=== PATIENT | male | born 1955 | race Caucasian/White ===

== ENCOUNTER 2021-01-09 02:18 | Day surgery (SDC) | payer MEDICARE, SELFPAY ==
[2020-12-30 08:49] VITALS: BMI 34.4
--- NOTE | 2021-01-09 10:07 | WPDANESEPPF ---
Anes - Initial Pre Proc Eval Procedure: Operation Date: 01/09/21 11:30 Proposed Procedures p Screening Colonoscopy - Degn Alvarez MD Date/Time: 01/09/21 10:07 Surgeon: Deng Alvarez MD Pre Op Diagnosis: neoplasm screening Patient Data Age: 65 Gender: M Height: 1.83 m Weight: 115 kg Allergies Allergy/AdvReac Type Severity Reaction Status Date / Time No Known Allergies Verified 01/09/21 11:00 Home Medications Medication Instructions Recorded Confirmed Type atorvastatin 40 mg tablet 40 mg PO DAILY 12/21/19 12/30/20 History finasteride 5 mg tablet 5 mg PO DAILY 06/12/20 12/30/20 History magnesium oxide 400 mg (241.3 mg 400 mg PO DAILY 06/12/20 12/30/20 History magnesium) tablet metoprolol tartrate 50 mg tablet 50 mg PO Q12H #180 tablet 06/18/20 12/30/20 Rx apixaban 5 mg tablet 5 mg PO BID #180 tablet 08/22/20 12/30/20 Rx mecobalamin (vitamin B12) 1,000 mcg PO DAILY 12/30/20 12/30/20 History Patient hx anesthesia problems: none Family hx anesthesia problems: none PMFSH Past Medical History Medical History Anticoagulation adequate Arthritis BMI 34.0-34.9,adult Colon cancer screening Encounter to establish care GERD (gastroesophageal reflux disease) GERD without esophagitis Heart disease History of atrial fibrillation History of stroke Hx of blood clots Hx of hemorrhoids Hyperlipidemia Hypertension Lumbar back pain with radiculopathy affecting lower extremity Osteoarthritis of knees, bilateral Primary hypertension Prostate cancer screening Spinal stenosis of lumbar region with neurogenic claudication Stroke Surgical History Surgical History History of back surgery 2005 History of cardiac radiofrequency ablation 2018 History of left knee surgery 2009 History of right knee surgery 1983 1984 History of surgery on arm right arm 1991 Hx of cataract surgery Family History Family History Mother Respiratory failure Heart disease Father Diabetes mellitus Heart disease Grandparent Heart disease Grandparent Heart disease Sibling Suicide Social History Social History Years smoked: 40 Smoking status: Former smoker Tobacco type: cigarettes Alcohol intake: current Drinks per week: 1 Substance use: never Living arrangements: with family Spiritual care concerns: No Anes - Eval Final PreProcedure Day of Procedure 01/09/21 10:07 Patient weight: obese Heart: regular rate and rhythm Lungs: clear to auscultation and normal air movement Airway: Mallampati scale class II Neurological: alert and oriented Last oral intake: >/= 8 hours ASA classification: III Emergent: no Anesthetic plan: proceed Anesthesia type and monitoring: general GIVS Informed Consent: The patient's anesthetic plan and its attendant risks and benefits were discussed with the patient/family/POA. Questions were solicited and answers provided to the satisfaction of the patient/family/POA.
[2021-01-09 11:02] VITALS: BP 134/96; PULSE 74; RESP 18; TEMP 36.4; O2SAT 96; BMI 33.9
[2021-01-09] MEDS: LACTATED RINGERS 1,000 ML 150 ML IV CONT (11:12)
--- NOTE | 2021-01-09 11:24 | PM.HPGS ---
History of Present Illness History of Present Illness Consent: Risks, benefits, and alternatives have been discussed and questions answered. Patient agrees to proceed with procedure. Chief complaint: neoplasm screening Narrative: German Mancia is a 65 year old male Referred for colon cancer screening. His last colonoscopy was 10 years ago Review of Systems Review of Systems: All systems reviewed & are unremarkable except as noted in HPI and below PMFSH Past Medical History Medical History Anticoagulation adequate Arthritis BMI 34.0-34.9,adult Colon cancer screening Encounter to establish care GERD (gastroesophageal reflux disease) GERD without esophagitis Heart disease History of atrial fibrillation History of stroke Hx of blood clots Hx of hemorrhoids Hyperlipidemia Hypertension Lumbar back pain with radiculopathy affecting lower extremity Osteoarthritis of knees, bilateral Primary hypertension Prostate cancer screening Spinal stenosis of lumbar region with neurogenic claudication Stroke Surgical History Surgical History History of back surgery 2005 History of cardiac radiofrequency ablation 2018 History of left knee surgery 2009 History of right knee surgery 1983 1984 History of surgery on arm right arm 1991 Hx of cataract surgery Family History Family History Mother Respiratory failure Heart disease Father Diabetes mellitus Heart disease Grandparent Heart disease Grandparent Heart disease Sibling Suicide Social History Social History Years smoked: 40 Smoking status: Former smoker Tobacco type: cigarettes Alcohol intake: current Drinks per week: 1 Substance use: never Living arrangements: with family Spiritual care concerns: No Meds Home Medications and Allergies Home Medications Medication Instructions Recorded Confirmed Type atorvastatin 40 mg tablet 40 mg PO DAILY 12/21/19 12/30/20 History finasteride 5 mg tablet 5 mg PO DAILY 06/12/20 12/30/20 History magnesium oxide 400 mg (241.3 mg 400 mg PO DAILY 06/12/20 12/30/20 History magnesium) tablet metoprolol tartrate 50 mg tablet 50 mg PO Q12H #180 tablet 06/18/20 12/30/20 Rx apixaban 5 mg tablet 5 mg PO BID #180 tablet 08/22/20 12/30/20 Rx mecobalamin (vitamin B12) 1,000 mcg PO DAILY 12/30/20 12/30/20 History Allergies Allergy/AdvReac Type Severity Reaction Status Date / Time No Known Allergies Verified 01/09/21 11:00 Vital Signs Vital Signs - 24 hr 01/09/21 11:02 Temperature 36.4 C L Pulse Rate 74 Respiratory Rate 18 Blood Pressure 134/96 H Pulse Oximetry 96 Exam Resp: Auscultation: clear to auscultation bilaterally Cardio: Rate: regular rate Rhythm: regular rhythm GI: GI Palp: Yes Soft to palpation and No Tenderness to palpation present (GI) Assessment and Plan Assessment and plan (1) Colon cancer screening: Code(s): Z12.11 - Encounter for screening for malignant neoplasm of colon Status: Acute
[2021-01-09 11:59] VITALS: BP 125/70; PULSE 63; RESP 22; O2SAT 94
[2021-01-09 12:09] VITALS: BP 116/79; PULSE 64; RESP 21; O2SAT 97
[2021-01-09 12:19] VITALS: BP 130/87; PULSE 62; RESP 18; O2SAT 97
== END 2021-01-09 12:30 | disposition home or self-care (01) ==
PROVIDERS: PCP Physician Assistant; Visit Provider Internal Medicine Gastroenterology
PROC: 0DJD8ZZ Inspection of Lower Intestinal Tract, Via Natural or Artificial Opening Endoscopic (ICD-10-PCS; CPT 45378; principal; 2021-01-09 11:30)
DX: Z12.11 Encounter for screening for malignant neoplasm of colon (principal); K57.30 Diverticulosis of large intestine without perforation or abscess without bleeding; I11.9 Hypertensive heart disease without heart failure; I48.91 Unspecified atrial fibrillation; Z98.1 Arthrodesis status; E78.5 Hyperlipidemia, unspecified; Z87.891 Personal history of nicotine dependence; R00.1 Bradycardia, unspecified; I63.9 Cerebral infarction, unspecified; K21.9 Gastro-esophageal reflux disease without esophagitis; M48.061 Spinal stenosis, lumbar region without neurogenic claudication; Z79.01 Long term (current) use of anticoagulants; E66.9 Obesity, unspecified; Z68.33 Body mass index [BMI] 33.0-33.9, adult; I34.0 Nonrheumatic mitral (valve) insufficiency
CPT/HCPCS: G0121; J2001; J2704; J7120

== ENCOUNTER 2021-07-10 10:47 | Outpatient (CLI) | payer MEDICARE, SELFPAY ==
--- NOTE | ~2021-07-10 | XR_ITS ---
XR hand LT min 3V DATE: 07/10/2021 11:09 INDICATION: Fell on ice yesterday. Left wrist and hand pain TECHNIQUE: 3 views COMPARISON: None FINDINGS: Plate and screws are noted along the distal ulnar shaft. There is osteophyte is at the first carpometacarpal joint and some interphalangeal joints. Subtle virtually nondisplaced distal radial cortical fracture is demonstrated to better advantage on the wrist radiographs today. No other fracture or dislocation is evident. IMPRESSION: Virtually nondisplaced dorsal distal radial cortical fracture Osteoarthritis Reviewed, dictated and finalized at location B. DING DEVICE OPERATOR
--- NOTE | ~2021-07-10 | XR_ITS ---
XR wrist LT min 3V DATE: 07/10/2021 11:09 INDICATION: Fall on ice yesterday. Left wrist and hand pain TECHNIQUE: 5 views COMPARISON: None FINDINGS: There is a plate and screws along the distal ulnar shaft. Normal alignment at the wrist joint. There is a virtually nondisplaced dorsal distal radial intra-articular cortical fracture. There is osteoarthritis at the first carpometacarpal joint. IMPRESSION: Dorsal distal radial virtually nondisplaced intra-articular cortical fracture Reviewed, dictated and finalized at location B. ER WORKER HELPER IMPRESSION: Dorsal distal radial virtually nondisplaced intra-articular cortica l fracture
== END 2021-07-10 10:48 | disposition home or self-care (01) ==
PROVIDERS: PCP Family Medicine; Visit Provider Family Medicine
DX: M79.642 Pain in left hand (principal); M25.532 Pain in left wrist; S52.592A Other fractures of lower end of left radius, initial encounter for closed fracture; M19.042 Primary osteoarthritis, left hand
CPT/HCPCS: 73110; 73130

== ENCOUNTER → 2022-02-24 10:48 | Outpatient (CLI) | payer MEDICARE, SELFPAY ==
--- NOTE | ~2022-02-24 | US_ITS ---
EXAMINATION: US carotid duplex BI DATE: 02/24/2022 11:14 INDICATION: Transient ischemic attack TECHNIQUE: Grayscale, color Doppler, and pulsed Doppler images of the cervical carotid arteries were obtained. The degree of vessel stenosis is placed in one of the following categories: normal, <50%, 5 0-69%, >=70% but less than near-occlusion, near-occlusion, or total occlusion. Note that percent sten osis relative to normal distal artery lumen diameter is indirectly measured from velocity measurement s as described by Man, et al. Radiology 2003; 229:340-346. COMPARISON: None. FINDINGS: RIGHT: The right common carotid artery (CCA) peak systolic velocity (PSV) is 87.5 cm/s. The right internal c arotid artery (ICA) PSV is 82.1 cm/s. The right ICA end-diastolic velocity (EDV) is 19.5 cm/s. The ri ght ICA/CCA PSV ratio is 0.9. Grayscale and color Doppler images yield an estimate of less than 50% d iameter reduction from plaque in the ICA. The external carotid artery (ECA) PSV is 80.9 cm/s. There i s antegrade flow in the right vertebral artery. LEFT: The left CCA PSV is 93.0 cm/s. The left ICA PSV is 82.1 cm/s. The left ICA EDV is 28.1 cm/s. The left ICA/CCA PSV ratio is 0.9. Grayscale and color Doppler images yield an estimate of less than 50% diam eter reduction from plaque in the ICA. The ECA PSV is 98.4 cm/s. There is antegrade flow in the left vertebral artery. IMPRESSION: 1. Less than 50% stenosis in the right internal carotid artery. 2. Less than 50% stenosis in the left internal carotid artery. Reviewed, dictated and finalized at Location A. Reviewed, dictated and finalized at location B.
== END ==
PROVIDERS: PCP Physician Assistant; Visit Provider Physician Assistant
DX: I65.23 Occlusion and stenosis of bilateral carotid arteries (principal)
CPT/HCPCS: 93880

== ENCOUNTER → 2022-03-04 09:22 | Outpatient (CLI) | payer MEDICARE, SELFPAY ==
--- NOTE | ~2022-03-04 | MR_ITS ---
EXAMINATION: MR brain/brain stem wo con DATE: 03/04/2022 10:01 INDICATION: Transient ischemic attack. TECHNIQUE: Magnetic resonance imaging (MRI) of the brain and brainstem was performed without intraven ous contrast. COMPARISON: None. FINDINGS: There are scattered areas of nonspecific increased T2-weighted signal intensity in the cere bral white matter, which is within normal limits for the patient's age. There is no intracranial hemo rrhage, acute infarction, or abnormal intracranial mass lesion. The ventricles are normal in size. Th e paranasal sinuses are clear. There are likely changes of ocular lens replacement surgeries. The mas toid air cells are normal. IMPRESSION: 1. Normal brain. Reviewed, dictated and finalized at location A. IMPRESSION: 1. Normal brain.
== END ==
PROVIDERS: PCP Physician Assistant; Visit Provider Physician Assistant
DX: Z86.73 Personal history of transient ischemic attack (TIA), and cerebral infarction without residual deficits (principal)
CPT/HCPCS: 70551

== ENCOUNTER 2022-04-07 10:03 | Outpatient (CLI) | payer MEDICARE, SELFPAY | END 2022-04-07 10:04 | disposition home or self-care (01) | LOC: ANHSURGERY 10:07 | PROVIDERS: PCP Physician Assistant; Visit Provider Urology | DX: Z01.818 Encounter for other preprocedural examination (principal); I10 Essential (primary) hypertension | CPT/HCPCS: 87086 ==

== ENCOUNTER 2022-04-13 01:17 | Day surgery (SDC) | payer MEDICARE, SELFPAY ==
[2022-03-31 14:34] VITALS: BMI 34.4
--- NOTE | 2022-03-31 15:05 | PC.NURSE ---
Report to the Outpatient Waiting Room, entrance under the green pavilion located off [facility], at time __6:30AM on date __04/13/22 . Planned Procedure Time: _8:30AM . Time changes happen often and if your time is changed the preop area will call you the afternoon before. - You and your visitor will be asked to self-screen and do not enter if you have any COVID symptoms. - We encourage only one visitor and NO visitors under age 16 are allowed at this time. Your visitor will receive communication by the phone number that is given day of service. - The patient visitor is requested to social distance or may leave the building when not with patient due to restrictions. - A mask is required within the hospital. Patients may have clear liquids (water, carbonated beverages, clear teas, apple juice) until 3 hours prior to surgery with a maximum of 20 ounces. - No food from midnight until time of surgery Take the following medications with a SIP of water the morning of surgery: ___METOPROLOL_(PT TAKES AMLODIPINE IN THE AFTERNOON) Medications to discontinue per physician __HOLD ELIQUIS 2 DAYS PRE-OP PER DR HENDRICKSON- LAST DOSE 04/10/22, HOLD ALL VITAMINS/SUPPLEMENTS- 7 DAYS PRE-OP PER DR HENDRICKSON- LAST DOSE 04/06/22 Please no make-up, nail uzbek, hairspray, perfume, deodorant, or body powder the day of surgery. No jewelry (including any body piercings) or valuables the day of surgery, leave them at home. Please take a shower or bath the night before, or the morning of, surgery with an antibacterial soap. Wear comfortable, loose fitting clothing. Children are encouraged to wear pajamas. - Jewelry must be removed prior to entering the operating room. Rings and piercings that are not removed may be cut off. - The hospital will not accept responsibility for valuables. - Please leave all valuables, including medications, at home the day of surgery. If you are going home after surgery, a licensed driver material handler must drive you home. - NO public transportation without another adult. - We recommend that an adult stay with you for 24 hours following discharge. - We also recommend that you do not drive, make important decision, drink alcoholic beverages, or take any drugs that were not prescribed by your health care provider for at least 24 hours after your discharge time. Follow any additional instructions given to you from your surgeon. If you or anyone in your household have experienced Covid symptoms in the past week, please notify your surgeon or the nurse liaison at the phone number below for possible testing. Telephone instructions given to __PATIENT and asked if any additional questions and then verbalized understanding. Patient advised to call surgeon office or pre surgery nurse liaison [phone] if any additional questions.
[2022-04-13 07:29] VITALS: BP 136/93; PULSE 62; RESP 14; TEMP 36.4; O2SAT 100
[2022-04-13] MEDS: LACTATED RINGERS 1,000 ML 30 ML IV CONT (07:33)
--- NOTE | 2022-04-13 07:45 | WPDANESEPPF ---
Anes - Initial Pre Proc Eval Procedure: Operation Date: 04/13/22 08:30 Proposed Procedures p Urolift - Donald French MD Date/Time: 04/13/22 07:45 Surgeon: Donald French MD Pre Op Diagnosis: BPH Patient Data Age: 66 Gender: M Height: 1.83 m Weight: 116.7 kg Last Vital Signs Temp 36.4 C L 04/13/22 07:29 Pulse 62 04/13/22 07:29 Resp 14 04/13/22 07:29 BP 136/93 H 04/13/22 07:29 Pulse Ox 100 04/13/22 07:29 O2 Del Method Room Air 04/13/22 07:29 Allergies Allergy/AdvReac Type Severity Reaction Status Date / Time lisinopril AdvReac Intermediate Cough Verified 04/13/22 07:34 Home Medications Medication Instructions Recorded Confirmed Type finasteride 5 mg tablet 5 mg PO DAILY 06/12/20 03/31/22 History metoprolol tartrate 50 mg tablet 50 mg PO Q12H #180 tabs 07/06/21 04/13/22 Rx apixaban 5 mg tablet (Eliquis) 5 mg PO BID #180 tabs 11/05/21 03/31/22 Rx mecobalamin (vitamin B12) 1,000 500 mcg PO DAILY 11/10/21 03/31/22 History mcg chewable tablet atorvastatin 40 mg tablet 40 mg PO DAILY #90 tabs 03/07/22 03/31/22 Rx amlodipine 2.5 mg tablet 2.5 mg PO DAILY #30 tabs 03/15/22 03/31/22 Rx Patient hx anesthesia problems: none Family hx anesthesia problems: none Results Review: All pre-operative results and documents have been reviewed as part of the pre-operative evaluation. FORMERLY [facility] Past Medical History Medical History Anticoagulation adequate Arthritis BMI 34.0-34.9,adult Colon cancer screening Elevated TSH Encounter to establish care GERD (gastroesophageal reflux disease) GERD without esophagitis Heart disease History of atrial fibrillation History of stroke Hx of blood clots Hx of hemorrhoids Hyperlipidemia Hypertension Lumbar back pain with radiculopathy affecting lower extremity Osteoarthritis of knees, bilateral Primary hypertension Prostate cancer screening Spinal stenosis of lumbar region with neurogenic claudication Stroke Surgical History Surgical History History of back surgery 2005 History of cardiac radiofrequency ablation 2019 History of left knee surgery 2009 History of right knee surgery 1983 1984 History of surgery on arm right arm 1991 Hx of cataract surgery Family History Family History Mother Respiratory failure Heart disease Father Diabetes mellitus Heart disease Grandparent Heart disease Grandparent Heart disease Sibling Suicide Social History Social History (Updated 04/13/22 @ 07:45 by Laci Samano MD) Smoking packs per day: 0.2 Smoking cigarettes per day: 4.0 Years smoked: 40 Smoking pack-years: 8.00 Smoking status: Former smoker Tobacco type: cigarettes Smoking end date: 06/06/17 Alcohol intake: current Drinks per week: 1 Substance use: never Substance use type: does not use Living arrangements: with family Additional living arrangements comments: Spiritual care concerns: No Anes - Eval Final PreProcedure Day of Procedure 04/13/22 07:45 Patient weight: obese Heart: regular rate and rhythm Lungs: clear to auscultation Airway: Mallampati scale class II Neurological: alert and oriented Last oral intake: >/= 8 hours ASA classification: III Emergent: no Anesthesia type and monitoring: general GIVS and standard monitoring Results Review: All pre-operative results and documents have been reviewed as part of the pre-operative evaluation. Informed Consent: The patient's anesthetic plan and its attendant risks and benefits were discussed with the patient/family/POA. Questions were solicited and answers provided to the satisfaction of the patient/family/POA.
--- NOTE | 2022-04-13 08:06 | WPDHPUPDATE1 ---
History and Physical Update Update Date/Time: 04/13/22 08:06 History and Physical has been reviewed, including an updated exam of the patient. There are NO changes in the patient's condition. Risks, benefits, and alternatives have been discussed and questions answered. Patient agrees to proceed with procedure. Proceed with urolift
[2022-04-13] MEDS: ceFAZolin 2 GM/D5W 50 ML 2 GM/50 ML BAG IVPB (08:12)
[2022-04-13] MEDS: LIDOCAINE HCL 2% GEL UROJET 10 ML PKG MUCOUS MEM (08:23)
--- NOTE | 2022-04-13 08:41 | W.PM.PROC2 ---
Procedure Note - Detailed Date of Procedure 04/13/22 Pre-op Diagnosis BPH Post-op Diagnosis Same Procedure Performed Uro lift with 6 francia Surgeon Donald French MD Anesthesia General Description of Procedure Patient is taken the operative suite correctly identified. Once anesthesia was obtained was placed in dorsal lithotomy position prepped draped usual sterile fashion. The UroLift scope was inserted into the bladder direct vision there were no tumors noted. We started by placing a staple 2.5 cm proximal to the bladder neck on the patient's left side. This was placed without difficulty. Similar stable was then placed on the opposite side. The 3rd and 4th francia were then placed near the level of the verumontanum on each side. After termination it was noted that we would stack them at this level. A 15 6 stable were then placed more inferiorly at the level of the verumontanum. There appeared to be an open anterior channel at this point. Patient had some mild oozing. 2% viscous lidocaine was inserted urethra and a 16 [place] Blancas was placed with 10 cc in the balloon. He is taken recovery stable condition. If his urine clears this Blancas will be removed. If he remains somewhat pinkish or bloody then we will send him home with a catheter for a day or 2. Drains Yes Packing No Pathology None sent Complications No immediate complications Condition Stable Disposition PACU
[2022-04-13 08:45] VITALS: BP 116/70; PULSE 64; RESP 22; O2SAT 97
[2022-04-13 09:15] VITALS: BP 117/60; PULSE 44; RESP 20
[2022-04-13 09:45] VITALS: BP 130/74; PULSE 56; RESP 20
== END 2022-04-13 10:00 | disposition home or self-care (01) ==
PROVIDERS: PCP Physician Assistant; Visit Provider Urology
PROC: 0T7D8DZ Dilation of Urethra with Intraluminal Device, Via Natural or Artificial Opening Endoscopic (ICD-10-PCS; CPT 52441; principal; 2022-04-13 08:30)
DX: N40.1 Benign prostatic hyperplasia with lower urinary tract symptoms (principal); R33.8 Other retention of urine; I11.9 Hypertensive heart disease without heart failure; K21.9 Gastro-esophageal reflux disease without esophagitis; E78.5 Hyperlipidemia, unspecified; Z86.718 Personal history of other venous thrombosis and embolism; Z86.73 Personal history of transient ischemic attack (TIA), and cerebral infarction without residual deficits; Z87.891 Personal history of nicotine dependence; E66.9 Obesity, unspecified; Z68.34 Body mass index [BMI] 34.0-34.9, adult; Z79.01 Long term (current) use of anticoagulants
CPT/HCPCS: C9740; 87086; A9270; J0690; J2704; J7120; L8699

== ENCOUNTER 2022-04-13 12:51 | Emergency (ER) | payer MEDICARE, SELFPAY ==
[2022-04-13 12:54] VITALS: BP 159/107; PULSE 65; RESP 18; TEMP 36.7; O2SAT 99
--- NOTE | 2022-04-13 14:13 | ED.GENADULT ---
HPI - General Adult General Chief complaint: Urogenital-Male Stated complaint: bleeding around catheter Time Seen by Provider: 04/13/22 13:51 Source: patient Mode of arrival: ambulatory Limitations: no limitations History of Present Illness HPI narrative: Patient had UroLift at [address] French, at 10 PM went home and noticed that he gets urge to urinate and urine coming out of the catheter around his penis. Patient was told by Dr. French office to go to the emergency room. The Blancas catheter was irrigated, still fluid coming out of the catheter at the penis exit, the catheter was changed, with good result. Urine output to the bag, patient feeling much better no urine leaking around the catheter. Related Data Home Medications Medication Instructions Recorded Confirmed finasteride 5 mg tablet 5 mg PO DAILY 06/12/20 03/31/22 mecobalamin (vitamin B12) 1,000 500 mcg PO DAILY 11/10/21 03/31/22 mcg chewable tablet Allergies Allergy/AdvReac Type Severity Reaction Status Date / Time lisinopril AdvReac Intermediate Cough Verified 04/13/22 07:34 Review of Systems Review of Systems: All systems reviewed & are unremarkable except as noted in HPI and below PMFSH Past Medical History Medical History Anticoagulation adequate Arthritis BMI 34.0-34.9,adult Colon cancer screening Elevated TSH Encounter to establish care GERD (gastroesophageal reflux disease) GERD without esophagitis Heart disease History of atrial fibrillation History of stroke Hx of blood clots Hx of hemorrhoids Hyperlipidemia Hypertension Lumbar back pain with radiculopathy affecting lower extremity Osteoarthritis of knees, bilateral Primary hypertension Prostate cancer screening Spinal stenosis of lumbar region with neurogenic claudication Stroke Surgical History Surgical History History of back surgery 2005 History of cardiac radiofrequency ablation 2019 History of left knee surgery 2009 History of right knee surgery 1983 1984 History of surgery on arm right arm 1991 Hx of cataract surgery Family History Family History Mother Respiratory failure Heart disease Father Diabetes mellitus Heart disease Grandparent Heart disease Grandparent Heart disease Sibling Suicide Social History Social History Smoking packs per day: 0.2 Smoking cigarettes per day: 4.0 Years smoked: 40 Smoking pack-years: 8.00 Smoking status: Former smoker Tobacco type: cigarettes Smoking end date: 06/06/17 Alcohol intake: current Drinks per week: 1 Substance use: never Substance use type: does not use Additional living arrangements comments: Spiritual care concerns: No Exam Narrative: General appearance: Well-developed, well-nourished Skin: Normal color Head: Normocephalic, nontraumatic Eyes: Clear conjunctiva ENT: Oropharynx normal, ears normal, nose normal Neck: Supple, nontender Chest and respiratory: Airway patent, no respiratory distress, no accessory muscle use Heart: Regular rate/rhythm Abdomen: Soft, nontender, no organomegaly, quiet bowel sounds, bloody urine leaking around the Blancas catheter exit Vascular: Normal peripheral pulses, normal capillary refill. Musculoskeletal: Normal range of motion, nontender back Neurologic: Alert and oriented ?3, BUSINESS REPORTER is normal as tested, no gross motor deficit Course Consultations Consultation #1: Dr. French Date:
[2022-04-13 16:20] VITALS: BP 138/80; PULSE 80; RESP 16; TEMP 36.8; O2SAT 100
--- NOTE | 2022-04-13 23:53 | PC.NURSE ---
Current ochoa not draining and pt having spasms and urine noted come out around catheter. 10 ml removed from 16 fr cath and catheter removed without problems. Large clot noted at end of 16fr ochoa 18fr ochoa inserted and instilled 5ml in balloon per instructions. Ochoa then irrigated with 60ml of normal saline and the 60 ml then removed with piston syringe. New catheter patent and draining red drainage. Catheter continued to drain with incident.
== END 2022-04-13 16:20 | disposition home or self-care (01) ==
PROVIDERS: Emergency Provider Emergency Medicine; PCP Urology
DX: R31.9 Hematuria, unspecified (principal); T83.091A Other mechanical complication of indwelling urethral catheter, initial encounter; Z87.891 Personal history of nicotine dependence; M19.90 Unspecified osteoarthritis, unspecified site; K21.9 Gastro-esophageal reflux disease without esophagitis; I10 Essential (primary) hypertension; E78.5 Hyperlipidemia, unspecified
CPT/HCPCS: 51702; 87086; 99283; A9270; J0690; J2704; J7120; L8699

== ENCOUNTER → 2022-11-19 09:35 | Outpatient (CLI) | payer MEDICARE, SELFPAY ==
--- NOTE | ~2022-11-19 | XR_ITS ---
EXAMINATION: XR chest 2V 11/19/2022 09:43 INDICATION: Dyspnea PROCEDURE: 2 view chest COMPARISON: No prior studies for comparison. FINDINGS: The lungs are clear. The cardiomediastinal silhouette is within normal limits. There are no pleural effusions. There is no pneumothorax suspected. There is an implantable battery device ov erlying the left anterior thorax. IMPRESSION: 1: NO ACUTE CARDIOPULMONARY DISEASE. Reviewed, dictated and finalized at location []
== END ==
PROVIDERS: PCP Family Medicine; Visit Provider Physician Assistant Medical
DX: R06.00 Dyspnea, unspecified (principal)
CPT/HCPCS: 71046

== ENCOUNTER 2023-04-13 14:58 | Outpatient (CLI) | payer MEDICARE, SELFPAY ==
--- NOTE | ~2023-04-13 | CT_ITS ---
EXAMINATION:CT diagnostic chest wo con DATE: 04/13/2023 15:28 INDICATION: Dyspnea. Chest pain. Cough. TECHNIQUE: Computed tomography (CT) of the chest was performed without intravenous contrast. Automate d exposure control and iterative reconstruction technique were employed. The dose-length product (DLP ) was 565.49 mGy-cm. COMPARISON: Chest 2 views 11/19/2022 FINDINGS: There is mild atelectasis bilaterally. Calcified right lung nodules and calcified right hil ar and mediastinal lymph nodes are consistent with old granulomatous disease. No pleural effusion. Th e heart size is normal. There are coronary artery calcifications. No pericardial effusion. There is a n electronic implant in anterior left chest wall. There is a 14 mm cyst in the liver. Calcifications in the spleen are consistent with old granulomatous disease. There is bilateral gynecomastia. There i s mild thoracic spondylosis. IMPRESSION: 1. No etiology for the patient's symptoms. Reviewed, dictated and finalized at location E. NESS OFFICE TECHNOLOGY INSTRUCTOR
== END 2023-04-13 14:59 | disposition home or self-care (01) ==
PROVIDERS: PCP Family Medicine; Visit Provider Nurse Practitioner Family
DX: R06.00 Dyspnea, unspecified (principal); R05.3 Chronic cough; R07.89 Other chest pain
CPT/HCPCS: 71250

== ENCOUNTER 2024-07-03 09:04 | Outpatient (CLI) | payer MEDICARE, SELFPAY ==
--- NOTE | ~2024-07-03 | US_ITS ---
Ultrasound of the Abdominal Aorta INDICATION: Nicotine dependence, aneurysm screening TECHNIQUE: Grayscale, color Doppler, and pulsed Doppler images of the aorta and common iliac arteries were obtained. COMPARISON: None. FINDINGS: Maximum vascular dimensions are as follows: Proximal aorta: 2.3 cm Mid aorta: 2.1 cm Distal aorta: 1.9 cm Right common iliac artery: 1.3 cm Left common iliac artery: 1.6 cm There is no evidence of abdominal aortic aneurysm. No para-aortic mass lesion or fluid collection see n. IMPRESSION: No evidence of abdominal aortic aneurysm. Reviewed, dictated and finalized at location . EXPERIENCE COORDINATOR
== END 2024-07-03 09:05 | disposition home or self-care (01) ==
LOC: MICIMG 09:05
PROVIDERS: PCP Family Medicine; Visit Provider Student in an Organized Health Care Education/Training Program
DX: Z87.891 Personal history of nicotine dependence (principal)
CPT/HCPCS: 76706

== ENCOUNTER 2025-02-19 08:26 | Outpatient (CLI) | payer MEDICARE, SELFPAY ==
--- NOTE | ~2025-02-19 | NM_ITS ---
EXAMINATION: NM daiana stress w perfusion DATE: 02/19/2025 11:18 INDICATION: Chest pain. TECHNIQUE: Rest images were obtained following intravenous administration of 11.8 mCi Tc99m tetrofosmin (Myoview). The patient was infused intravenously with Lexiscan (regadenoson). Then, 34.5 mCi Tc99m tetrofosmin (Myoview) was administered intravenously, and stress images were obtained. Data was tamar nstructed into short axis and horizontal and vertical long axis SPECT images. Gated SPECT images were also obtained. COMPARISON: None. FINDINGS: There is no definite reversible or fixed perfusion abnormality to suggest ischemia or infarction. There is no segmental wall motion abnormality. Left ventricular ejection fraction measures >70%. IMPRESSION: 1. No definite ischemia or infarct. 2. Normal left ventricular ejection fraction measuring >70%. Reviewed, dictated and finalized at location E.
--- NOTE | 2025-02-19 08:37 | EST_ITS ---
Patient Info Name: German Mancia Age: 69 years : 1955 Gender: Male Ht: 72 in Wt: 260 lbs BSA: 2.49 m2 HR: 57 bpm BP: 140 / 82 mmHg Exam Date: 02/19/2025 8:37 AM Patient Status: O Admit Date: 02/19/2025 Exam Type: CA stress daiana w NM A regadenoson stress test was performed. Staff Referring Physician: Nikita Powers DO Attending Provider: Nikita Powers DO Exercise Technologist: Aby Nicole Exercise Physician: Nikita Powers DO Summary 1. 1. Negative lexiscan stress test for ischemic ST changes by ECG criteria. 2. 2. Baseline hypertension. 3. 3. Nuclear scan to follow and will be reported separately. Please correlate with it. 4. 4. Patient informed of the above results. Protocol: Lexiscan Stress ECG Details Stage: REST Duration (min): 1 min : 11 sec HR (bpm): 56 SBP (mmHg): 140 DBP (mmHg): 82 Stage: REST Duration (min): 7 min : 26 sec HR (bpm): 60 SBP (mmHg): 140 DBP (mmHg): 82 Stage: STAGE 1 Duration (min): 0 min : 59 sec HR (bpm): 77 SBP (mmHg): 154 DBP (mmHg): 81 Stage: RECOVERY Duration (min): 1 min : 0 sec HR (bpm): 85 SBP (mmHg): 154 DBP (mmHg): 81 Stage: RECOVERY Duration (min): 2 min : 0 sec HR (bpm): 84 SBP (mmHg): 154 DBP (mmHg): 81 Stage: RECOVERY Duration (min): 3 min : 0 sec HR (bpm): 83 SBP (mmHg): 137 DBP (mmHg): 82 Stage: RECOVERY Duration (min): 3 min : 15 sec HR (bpm): 82 SBP (mmHg): 137 DBP (mmHg): 82 Rest HR: 60 bpm Peak HR: 85 bpm Rest Sys BP: 140 mmHg Peak Sys BP: 154 mmHg Max Pred HR: 151 bpm % Max Pred HR: 56 % Target HR: 128 bpm Max RPP: 13,090 bpm*mmHg Termination Reason: Completed protocol Cardiac Symptoms: Shortness of breath Total Time: 1 min : 0 sec Rest Kaminski BP: 82 mmHg Peak Kaminski BP: 81 mmHg Total Dose: 0.4 mg Resting ECG Sinus rhythm. Stress ECG No ST changes. Arrhythmias None. Report Signatures
--- OUTSIDE RECORDS SUMMARY | 2025-02-19 09:18 | XMS_ITS | Encounter Summary ---
Author Organization [facility] Address [address] [place] [address] Care Team Providers Care Offal Baler Name Role Phone Lauri Ronquillo MD Primary Care Provider + [phone] Lauri Ronquillo MD Primary Care Provider [phone] Ruma Nunez Primary Care Provider [phone] Sj Singleton MD Unavailable [phone] Encounter Details Date Type Department Care Team (Late st Contact Info) Description 02/05/2020 Telephone [facility] - Imaging [address] [place] [address] Transcribed Order, Provider Social History Tobacco Use Types Packs/Day Years Used Date Smoking Tobacco: Former Smokeless Tobacco: Never Alcohol Use Standard Drinks/Week Comments Yes 0 (1 standard drink = 0.6 oz pur e alcohol) PHQ-2 Answer Date Recorded PHQ-2 Total Score (If total score is 3 or more points, staff should administer the PHQ-9) 2 01/17/2020 Sex and Gender Information Value Date Recorded Sex Assigned at Not on file Legal Sex Male 8:53 PM NANOTECHNOLOGY ENGINEERING TECHNOLOGIST Gender Identity Not on file Sexual Orientation Straight 02/12/2020 10 :39 AM CDT Occupation Industry Job Start Date Job End Date Retired Not on file Not on file Not on file documented as of this encounter Plan of Treatment Not on file documented as of this encounter Visit Diagnoses Not on filedocumented in this encounter Care Teams Offal Baler Relationship Specialty Start Date End Date Lauri Ronquillo MD PCP - General Internal Medicine 12/03/19 03/02/20 Lauri Ronquillo MD PCP - General 03/03/20 07/27/23 Ruma Nunez PA [address] [place] [address] PCP - General Family Medicine 07/28/23 Sj Singleton MD [address] [place] [address] Consulting Physician Interventional Cardiology 08/03/23 documented as of this encounter
--- OUTSIDE RECORDS SUMMARY | 2025-02-19 09:18 | XMS_ITS | Clinical Summary ---
Author Organization [facility] Address [address] [place] [address] Care Team Providers Care House Rn Name Role Phone Ruma Nunez Primary Care Provider [phone] Sj Singleton MD Unavailable [phone] Allergies No known active allergies Medications metoprolol XL (TOPROL-XL) 50 mg extended release tablet Take 1 tablet (50 mg total) by mouth 2 (two) times a day Active atorvastatin (LIPITOR) 40 mg tablet Take 1 tablet (40 mg total) by mouth daily Active apixaban (ELIQUIS) 5 mg tablet Take 1 tablet (5 mg total) by mouth 2 (two) times a day 03/10/2020 Active albuterol (PROAIR RESPICLICK) 90 mcg/actuation inhaler Inhale 2 puffs every 6 (six) hours as needed for wheezing Active clopidogreL (PLAVIX) 75 mg tablet Take 1 tablet (75 mg total) by mouth daily 90 tablet 3 08/03/2023 Active Active Problems Problem Noted Date Diagnosed Date Coronary arteriosclerosis 07/28/2023 Chest pain 03/03/2023 Status post lumbar spinal fusion 08/20/2020 Assessment & Plan (08/19/2021 1:36 PM CDT): Mr. Mancia is clinically doing well after posterior lumbar decompression and fusion. He does not have any significant back pain or radicular leg symptoms. He seems to have a solid fusion by x-ray from L4-S1. There is lucency around the bilateral L3 screws and evidence of pseudoarthrosis at that level which is asymptomatic. We discussed symptoms to watch out for. We will not set up a scheduled appointment, but I would be happy to see him back at any point if problems arise. Assessment & Plan (08/20/2020 11:18 AM CDT): Mr. Mancia is status post L3-S1 decompression and fusion. He had entire leg numbness prior to surgery. The numbness is now in the distal ankle and foot anteriorly is likely to improve over time. There is some lucency around the L3 screws but no abnormal movement on dynamic range of motion. It seems that the bone is filling in around the screws. We will follow this over time. Plan to see him back in 1 year with AP and lateral lumbar spine films at that time. Piriformis syndrome of right side 08/20/2020 Assessment & Plan (08/20/2020 11:19 AM CDT): Mr. Mancia has a markedly positive piriformis stretch on the right. I have shown him several piriformis stretches to try out at home to loosen this muscle. Postlaminectomy syndrome, lumbar region 03/12/20 20 Assessment & Plan (04/16/2020 2:08 PM SUPPLIER SPECIALIST): PLAN: - Continue activity restrictions as outlined prior to surgery. - After 6 weeks may start physical therapy/aqua therapy/home exercise program - Continue bone growth stimulator for an additional 2 months. - After 6 weeks, patient may resume NSAIDs, may increase activity as tolerated, wean off brace. WORK STATUS: - RETIRED FOLLOW UP APPT: With Dr. Zafar in 4.5 months with Flexion/Extension Lumbar spine films. Assessment & Plan (03/17/2020 11:14 AM CDT): PLAN: - Continue activity restrictions as outlined prior to surgery. - Continue bone growth stimulator/brace. - Obtain Lumbar AP/LAT Xray today to check for instrumentation placement. - Advised patient the numbness will gradually improve. WORK STATUS: - RETIRED FOLLOW UP APPT: With [facility] April 15, 2020 with AP/LAT Lumbar Spine Xray. Assessment & Plan (03/12/2020 10:01 AM CDT): PLAN: - Continue activity restrictions as outlined prior to surgery. - Renew medications: Ruskin 5/325 1 q 6 hr prn-mailed script to home. - Continue bone growth stimulator/brace. WORK STATUS: - OFF WORK FOLLOW UP APPT: With [facility] on March 17, 2020 for removal of remaining francia. Benign essential hypertension 02/19/2020 Gastroesophageal reflux disease 02/19/2020 Pure hypercholesterolemia 02/19/2020 History of stroke 02/19/2020 Neurogenic claudication due to lumbar spinal wiley nosis 01/28/2020 Overview (01/28/2020): Added automatically from request for surgery [id number] Lumbar stenosis with neurogenic claudication Assessment & Plan (01/17/2020 2:07 PM CDT): Mr. Mancia he has lumbar stenosis with neurogenic claudication. He has some proximal leg weakness associated with this. He also seems to have symptoms in the L5 distribution. He gets severe pain when coughing or sneezing. The pain extends down both legs when this occurs. He is on anti-platelet therapy for atrial fibrillation and prior stroke. We discussed different options including doing the L3-4 level alone or L3-4 and L5-S1. Given the need to stop platelet therapy for surgery, I would recommend doing both levels for a wide decompression at both levels during a single surgery. We will arrange for him to undergo L3-S1 decompression and fusion with revision of prior hardware at L4-5 at our earliest convenience. We will get a CT of the lumbar spine to assess screw placement from the prior surgery and to assess fusion. We will also assess pedicle width at L3 and S1. Atrial fibrillation 02/12/2019 Insomnia 01/29/2017 Arthralgia of hip 09/23/2011 Osteoarthritis Obesity (BMI 35.0-39.9 without comorbidity) Overview (02/19/2020): BMI 37 BPH (benign prostatic hyperplasia) Hearing loss Resolved Problems Problem Noted Date Diagnosed Date Resolved Date History of DVT (deep vein thrombosis) 02/19/2020 02/19/2020 Surgical History Surgery Date Site/Laterality Comments KNEE ARTHROSCOPY Bilateral POSTERIOR FUSION LUMBAR SPINE 10/04/2005 - 11/03/2005 L4-5 WRIST SURGERY GASTRIC BYPASS CLOSED REDUCTION FOREARM FRACTURE CARDIAC ELECTROPHYSIOLOGY MAPPING AND ABLATION 06/06/2018 - 06/05/2019 SPINAL FUSION 03/03/2020 Removal of L4-L5 Hardware, L3-S1 Posterior Spinal Decompression and Fusion-(Dr Zafar) WRIST FRACTURE SURGERY Left CATARACT EXTRACTION 06/06/2020 - 06/05/2021 Medical History Medical History Date Comments Stroke (HCC) Hearing loss GERD (gastroesophageal reflux disease) BPH (benign prostatic hyperplasia) Osteoarthritis Presence of cardiac device LOOP RECORDER Obesity (BMI 35.0-39.9 witho ut comorbidity) BMI 37 Arthralgia of hip 09/23/2011 Lumbar stenosis with neuroge pushpa claudication 01/17/2020 Neurogenic claudication due to lumbar spinal stenosis 01/28/2020 Added automatically from [facility] for surgery [id number] Atrial fibrillation (HCC) 02/12/2019 Benign essential hypertension 02/19/2020 Pure hypercholesterolemia 02/19/2020 Insomnia 01/29/2017 Family History Medical History Relation Name Comments Cancer Father Diabetes Father Hypertension Father Stroke Father Heart disease Mother Hypertension Mother Relation Name Status Comments Father Mother Social History Tobacco Use Types Packs/Day Years Used Date Smoking Tobacco: Former Cigarettes Q uit: 04/04/2015 Smokeless Tobacco: Never Tobacco Cessation:Counseling Given: Not Answered Alcohol Use Standard Drinks/Week Comments Yes 0 (1 standard drink = 0.6 oz pur e alcohol) AUDIT-C Answer Date Recorded Q1: How often do you have a drink containing alc ohol? Monthly or less 03/15/2023 Q2: How many drinks containi ng alcohol do you have on a typical day when you are drinking? 1 or 2 03/15/2023 Q3: How often do you have si x or more drinks on one occasion? Never 03/15/2023 PHQ-2 Answer Date Recorded PHQ-2 Total Score (If total score is 3 or more points, staff should administer the PHQ-9) 2 01/17/2020 Personal Safety Answer Date Recorded Have you ever been in or are you currently in a harmful physical or emotional relationship or is someone making you feel afraid or unsafe? Denies 08/03/2023 Sex and Gender Information Value Date Recorded Sex Assigned at Not on file Legal Sex Male 8:53 PM SUPPLIER SPECIALIST Gender Identity Not on file Sexual Orientation Straight 02/12/2020 10 :39 AM CDT Occupation Industry Job Start Date Job End Date Retired Not on file Not on file Not on file Obstetrics History Last Filed Vital Signs Vital Sign Reading Time Taken Comments Blood Pressure 145/83 08/03/2023 7:15 PM SUPPLIER SPECIALIST Pulse 62 08/03/2023 7:15 PM SUPPLIER SPECIALIST Temperature 36.4 C (97.5 F) 08/03/2023 4:45 PM SUPPLIER SPECIALIST Respiratory Rate 12 08/03/2023 7:15 PM SUPPLIER SPECIALIST Oxygen Saturation 98% 08/03/2023 7:15 PM SUPPLIER SPECIALIST Inhaled Oxygen Concentration - - Weight 119.3 kg (263 lb) 08/03/2023 11:13 AM SUPPLIER SPECIALIST Height 182.9 cm (6') 08/03/2023 11:13 AM SUPPLIER SPECIALIST Body Mass Index 35.67 08/03/2023 11:13 AM SUPPLIER SPECIALIST Plan of Treatment Health Maintenance Due Date Last Done Comments Colon Cancer Screening-Colonoscopy 1955 Hepatitis C Screening 1955 Prostate Cancer Screening-PSA 1955 DTaP/Tdap/Td Vaccine (1 - Tdap) 08/16/1966 Hepatitis B Screening 08/16/1973 Pneumococcal vaccine 65+ (1 of 1 - PCV) 08/16/2005 Zoster Vaccine (1 of 2) 08/16/2005 Abdominal Aortic Aneurysm (A AA) Screen 08/16/2020 Well Visit 65+ 08/16/2020 Depression Screening 01/16/2021 01/17/2020, 01/17/20 20 Fall Risk Assessment 08/03/2024 08/03/2023 Influenza Vaccine (#1) 2025 9, 03/07/2018, 04/06/2017, Additional history exists Medical Devices Implanted Type Area Chorus Master Device Identifier Shelf Expiration Date Model / Serial / Lot Screw And Plate Left: Ulna Description:Patient has scre w and plate after surgery on ulna Flint [id number]-[id number]-105 Inqu Paste Mix Plus Black Oxide Coating Equipment Tender 5cc Bone Graft Hyaluronic Acid Poly - [id number] Implanted:Qty: 1 on 03/03/2020 by Randy Zafar MD at [facility] N/A: Lumbar-Sa cral Spine Flint [id number] 05/17/2021 IQSP-PP-10 [id number] [place] Iqsp-Pp-105 Inqu Paste Mix Plus Black Oxide Coating Equipment Tender 5cc Bone Graft Hyaluronic Acid Poly - [id number] Implanted:Qty: 1 on 03/03/2020 by Randy Zafar MD at [facility] N/A: Lumbar-Sa cral Spine [employer] [id number] 05/17/2021 IQSP-PP-10 5 / / [id number] Integra [employer] Evans Dp-1011 Duragen Plus 1x1in Patch Resorbable Suturable Cranial Dura Graft - [id number] Implanted:Qty: 1 on 03/03/2020 by Randy Zafar MD at [facility] N/A: Lumbar-Sa cral Spine Integra [employer] Evans 10/03/2022 [id number]-[id number] / / [id number] Core Link [id number] Cressey 7mm 40mm Spine Pedicle Screw Bone Nonsterile 5500 Series - [id number] Implanted:Qty: 8 on 03/03/2020 by Randy Zafar MD at [facility] N/A: Lumbar-Sa cral Spine Core Link [id number] / / Core Link [id number] Cressey Screw Set 5500 Series - [id number] Implanted:Qty: 8 on 03/03/2020 by Randy Zafar MD at [facility] N/A: Lumbar-Sa cral Spine Core Link [id number] / / Core Link [id number] Cressey 5.5mm 100mm Line Prebent Hayder Spinal Nonsterile 5500 Series - [id number] Implanted:Qty: 2 on 03/03/2020 by Randy Zafar MD at [facility] N/A: Lumbar-Sa cral Spine Core Link [id number] / / Medtronic Card Vasc Surgery 3.5 X 18mm Roscoe [place] Rx Coronary Stent [id number] - [id number] Implanted:Qty: 1 on 08/03/2023 by Sj Singleton MD at [facility] Medtronic Card Vasc Surgery 06/14/2026 [id number] / / [id number] 2001 Insurance [employer] MEDICARE [employer] Advance Directives For more information, please contact: [phone] * Full Code (Latest Code Status on File) Date Activated Date Inactivated Comments 03/03/2020 6:25 PM 03/05/2020 6:33 PM Care Teams House Rn Relationship Specialty Start Date End Date Ruma Nunez PA [address] [place] [address] PCP - General Family Medicine 07/28/23 Sj Singleton MD [address] [place] [address] Consulting Physician Interventional Cardiology 08/03/23
--- OUTSIDE RECORDS SUMMARY | 2025-02-19 09:18 | XMS_ITS | Clinical Summary ---
Author Organization [facility] Address [address] [place] [address] Care Team Providers Care Electrostatic Painter Name Role Phone Lauri Ronquillo MD Primary Care Provider [phone] Source Comments [facility],non-owned Affiliates and Associated Physician Practices is amultiple site organization consisting of ambulatory clinics and hospital sitesin [place], [place], [place] and [place]. This disclosure is being madepursuant to the Care Everywhere program and may not contain all information available regarding this patient. Last updated 18.[facility] Allergies No known active allergies Medications * Be aware that medications may not be up to date on this document. Alwaysverify current medications with the patient. apixaban (ELIQUIS) 5 MG tablet Take 5 mg by mouth 2 times daily Active atorvastatin (LIPITOR) 40 MG tablet Take 40 mg by mouth once daily Active amiodarone (CORDARONE) 200 MG tablet Take 1 tablet by mouth 3 times daily 90 tablet 5 02/13/2019 Active furosemide (LASIX) 40 MG tablet Take 1 tablet by mouth once daily 30 tablet 02/14/2019 Active spironolactone (ALDACTONE) 50 MG tablet Take 1 tablet by mouth once daily 30 tablet 02/14/2019 Active Colchicine 0.6 MG capsule Take 1 capsule by mouth 2 times daily 60 capsule 02/13/2019 Active pantoprazole EC (PROTONIX) 40 MG tablet Take 1 tablet by mouth 2 times daily 60 tablet 5 02/13/2019 Active potassium chloride ER (KLOR-CON M) 20 MEQ tablet Take 2 tablets by mouth once daily 60 tablet 5 02/13/2019 Active Active Problems Problem Noted Date Diagnosed Date Atrial fibrillation 02/12/2019 Social History Tobacco Use Types Packs/Day Years Used Date Smoking Tobacco: Never Assessed Sex and Gender Information Value Date Recorded Sex Assigned at Not on file Legal Sex Male 1:30 PM CDT Gender Identity Not on file Sexual Orientation Not on file Last Filed Vital Signs Vital Sign Reading Time Taken Comments Blood Pressure 108/62 02/13/2019 12:30 PM CDT Pulse 88 02/13/2019 12:30 PM CDT Temperature 36.6 C (97.8 F) 02/13/2019 12:30 PM CDT Respiratory Rate 18 02/13/2019 12:30 PM CDT Oxygen Saturation 100% 02/13/2019 12:30 PM CDT Inhaled Oxygen Concentration - - Weight 111.1 kg (245 lb) 02/12/2019 7:30 AM CDT Height 182.9 cm (6') 02/12/2019 7:30 AM CDT Body Mass Index 33.23 02/12/2019 7:30 AM CDT Plan of Treatment Health Maintenance Due Date Last Done Comments COLOGUARD (AGES 45-75) - COLON CA SCREENING 1955 COLON MONITORING 1955 COLONOSCOPY - COLON CA SCREENING 1955 CT COLONOGRAPHY - COLON CA SCREENING 1955 Colorectal Cancer Screening 1955 FIT - COLON CA SCREENING 1955 FLEX SIG - COLON CA SCREENING 1955 HEPATITIS C SCREENING 08/12/1973 DTAP/TDAP/TD VACCINES (1 - Tdap) 08/16/1974 PNEUMOCOCCAL VACCINE 50+ (1 of 1 - PCV) 08/16/2005 ZOSTER VACCINE (1 of 2) 08/16/2005 DEPRESSION SCREENING 06/06/2024 COVID-19 VACCINE (1 - 2023- season) 2025 INFLUENZA VACCINE (#1) 2025 8, 04/06/2017, 03/12/2016, Additional history exists Respiratory Syncytial Virus (RSV) Vaccine Pt: or over 60 yrs (1 - 1-dose 75+ series) 08/16/2030 HEPATITIS B VACCINE Aged Out No longe r eligible based on patient's age to complete this topic HIB VACCINE Aged Out No longer eligi ble based on patient's age to complete this topic HPV VACCINE Aged Out No longer eligi ble based on patient's age to complete this topic MENINGOCOCCAL (Group B) VACCINE SHARED DECISION-MAKING Aged Out No longer eligible based on patient's age to complete this topic MENINGOCOCCAL GROUPS A/C/Y/W VACCINE Aged Out No longer eligible based on patient's age to complete this topic Insurance AETNA Advance Directives * Full Code (Latest Code Status on File) Date Activated Date Inactivated Comments 02/12/2019 3:03 PM 02/13/2019 3:12 PM Care Teams Electrostatic Painter Relationship Specialty Start Date End Date Lauri Ronquillo MD PCP - General Internal Medicine 02/12/19
== END 2025-02-19 08:27 | disposition home or self-care (01) ==
PROVIDERS: PCP Family Medicine; Visit Provider Internal Medicine Cardiovascular Disease
DX: R07.9 Chest pain, unspecified (principal); I10 Essential (primary) hypertension
CPT/HCPCS: 78452; 93017; A9502; J2785